=== PATIENT | female | born 1945 | race Caucasian/White ===

== ENCOUNTER 2018-04-08 23:01 | Emergency (ER) | payer MEDICARE, OTHER ==
[~2018-04-08] VITALS: Ht 157.5 cm; Wt 84.0 kg
[2018-04-08 23:03] VITALS: BP 159/82
[2018-04-08] MEDS ORDERED: tobramycin/dexamethasone ophthalmic suspension EACHEYE ONE (23:15)
== END 2018-04-08 23:31 | disposition home or self-care (01) ==
LOC: ER 23:02
DX: H10.9 Unspecified conjunctivitis (principal); H01.006 Unspecified blepharitis left eye, unspecified eyelid; H01.003 Unspecified blepharitis right eye, unspecified eyelid; E11.9 Type 2 diabetes mellitus without complications; G89.29 Other chronic pain; Z98.84 Bariatric surgery status
CPT/HCPCS: 99282

== ENCOUNTER 2018-04-11 13:53 | Emergency (ER) | payer MEDICARE, OTHER ==
[~2018-04-11] VITALS: Ht 157.5 cm; Wt 84.0 kg
[2018-04-11 14:04] VITALS: BP 147/67
[2018-04-11] MEDS ORDERED: TOBR5DRO57 EACHEYE (14:38)
== END 2018-04-11 14:52 | disposition home or self-care (01) ==
LOC: ER 13:53
DX: H01.006 Unspecified blepharitis left eye, unspecified eyelid (principal); H01.003 Unspecified blepharitis right eye, unspecified eyelid; E11.9 Type 2 diabetes mellitus without complications; G89.29 Other chronic pain; Z79.899 Other long term (current) drug therapy
CPT/HCPCS: 99283

== ENCOUNTER 2019-07-18 19:17 | Emergency (ER) | payer MEDICARE, OTHER ==
[~2019-07-18] VITALS: Ht 157.5 cm; Wt 97.0 kg
[2019-07-18 19:40] VITALS: BP 145/91
[2019-07-18] MEDS ORDERED: ondansetron 4mg rapidly disintigrating tab PO ONE (20:55)
[2019-07-18] MEDS ORDERED: HYDROcodone/acetaminophen 5mg/325mg tablet PO ONE (20:55)
== END 2019-07-18 21:35 | disposition home or self-care (01) ==
LOC: ER 19:18
DX: M25.562 Pain in left knee (principal); R22.42 Localized swelling, mass and lump, left lower limb; E11.9 Type 2 diabetes mellitus without complications; G89.29 Other chronic pain; Z98.0 Intestinal bypass and anastomosis status
CPT/HCPCS: 29505; 73564; 99284

== ENCOUNTER 2019-12-11 08:26 | Day surgery (SDC) | payer MEDICARE, OTHER ==
[2019-12-04 14:31] LABS: BASOPHILS # (AUTO) 0.1 X10'3 (0-0.2); BASOPHILS % (AUTO) 0.7 % (0-1); EOSINOPHILS # (AUTO) 0.2 X10'3 (0-0.9); EOSINOPHILS % (AUTO) 2.2 % (0-6); LYMPHOCYTES # (AUTO) 3.3 X10'3 (1.1-4.8); LYMPHOCYTES % (AUTO) 37.9 % (21-51); MEAN CORPUSCULAR HEMOGLOBIN 31.3 PG (27.0-31.0); MEAN CORPUSCULAR HGB CONC 33.8 g/dL (33.0-36.5); MEAN CORPUSCULAR VOLUME 92.4 FL (78-98); MEAN PLATELET VOLUME 7.9 FL (7.4-10.4); MONOCYTES # (AUTO) 0.5 X10'3 (0-0.9); MONOCYTES % (AUTO) 5.4 % (2-12); NEUTROPHILS # (AUTO) 4.7 X10'3 (1.8-7.7); NEUTROPHILS % (AUTO) 53.8 % (42-75); PRE OP HEMATOCRIT 42.2 % (35.0-45.0); PRE OP HEMOGLOBIN 14.3 g/dL (12.0-16.0); PRE OP PLATELET COUNT 197 X10'3 (140-440); RED BLOOD COUNT 4.57 X10'6 (4.20-5.60); RED CELL DISTRIBUTION WIDTH 13.2 % (11.5-14.5)
[2019-12-04 14:56] LABS: ALBUMIN 3.7 G/DL (3.4-5.0); ALBUMIN/GLOBULIN RATIO 0.9 (1.1-1.5); ALKALINE PHOSPHATASE 115 IU/L (46-116); BLOOD UREA NITROGEN 19 MG/DL (7-18); BUN/CREATININE RATIO 23.8 (6.6-38.0); CALCIUM 9.3 MG/DL (8.5-10.1); CHLORIDE 104 MMOL/L (99-107); PRE OP ALT 25 U/L (30-65); PRE OP ANION GAP 6 (8-16); PRE OP AST 21 U/L (10-37); PRE OP BILIRUB, TOTAL 0.5 MG/DL (0.0-1.0); PRE OP GLUCOSE 101 MG/DL (70-104); PRE OP POTASSIUM 3.5 MMOL/L (3.4-5.1); PRE OP SODIUM 140 MMOL/L (135-145); TOTAL CARBON DIOXIDE 29.8 MMOL/L (24-32); TOTAL PROTEIN 7.8 G/DL (6.4-8.2); eGFR 71 ML/MIN
[2019-12-11] VITALS (8 sets, daily range): BP systolic 140–156; BP diastolic 69–95
[~2019-12-11] VITALS: Ht 152.4 cm; Wt 100.2 kg
[~2019-12-11 08:26] MED LIST: ACET-2319 PO; ALPH600C3 PO; FLUT16SP28 BOTHNARES; GABA300C PO; INDA2.5T5 PO; PSEU120T84 PO; RED600TA PO; TRAM50TA2 PO; ceFAZolin 2gm in dextrose, iso 50 ML IV ONE; famotidine 10mg tablet PO ONE; ringers solution, lacted 1,000 ML IV SCH; vancomycin 1,500 MG in NS 300ml IV soln IV ONE
[2019-12-11] MEDS ORDERED: fentaNYL/PF 50MCG/1 ML 2ML syringe ONE ×3 (10:13→11:32)
[2019-12-11] MEDS ORDERED: sevoflurane 250ml liquid IH ONE (10:28)
[2019-12-11] MEDS ORDERED: BUPIVAcaine/PF 2.5 mg/ml (0.25%) 30ml vial ONE (10:29)
[2019-12-11] MEDS ORDERED: triamcinolone acetonide 40mg/ml inj ONE ×2 (10:29)
[2019-12-11] MEDS ORDERED: ondansetron/PF 4mg/2ml inj ONE (11:03)
[2019-12-11] MEDS ORDERED: hydrALAZINE 20mg/ml inj. IV ONE (11:03)
[2019-12-11] MEDS ORDERED: propofol inj 20 ML IV ONE (11:03)
[2019-12-11] MEDS ORDERED: LIDOcaine 2% (20mg/ml) 5ml vial ONE (11:03)
[2019-12-11] MEDS ORDERED: acetaminophen 1,000mg/100ml IV 100 ML IV ONE (11:04)
--- NOTE | 2019-12-11 11:50 | NUR ---
ADMITTED TO PACU FROM OR ACCOMPANIED BY ANESTHESIA. INITIAL PHYSICAL ASSESSMENT DONE AND RECORDED. REPORT RECEIVED FROM ANESTHESIA.
[2019-12-11] MEDS ORDERED: HYDROcodone/acetaminophen 10/325mg tab PO ONE (12:35)
--- NOTE | 2019-12-11 13:30 | NUR ---
DISCHARGE CRITERIA MET, DISCHARGE INSTRUCTIONS GIVEN, DEMONSTRATES VERBAL UNDERSTANDING. DISCHARGED HOME IN GOOD CONDITION.
== END 2019-12-11 13:30 | disposition home or self-care (01) ==
LOC: PAS 08:26
PROVIDERS: ATTEND Orthopaedic Surgery
DX: S83.232A Complex tear of medial meniscus, current injury, left knee, initial encounter (principal); S83.272A Complex tear of lateral meniscus, current injury, left knee, initial encounter; M94.262 Chondromalacia, left knee; G89.4 Chronic pain syndrome; F32.9 Major depressive disorder, single episode, unspecified; I10 Essential (primary) hypertension; K21.9 Gastro-esophageal reflux disease without esophagitis; E66.01 Morbid (severe) obesity due to excess calories; Z68.41 Body mass index [BMI] 40.0-44.9, adult; M17.0 Bilateral primary osteoarthritis of knee; E11.40 Type 2 diabetes mellitus with diabetic neuropathy, unspecified; E78.5 Hyperlipidemia, unspecified; Z87.891 Personal history of nicotine dependence; Z88.8 Allergy status to other drugs, medicaments and biological substances; Z79.899 Other long term (current) drug therapy; Z20.828 Contact with and (suspected) exposure to other viral communicable diseases; Z98.84 Bariatric surgery status; Z98.890 Other specified postprocedural states; X58.XXXA Exposure to other specified factors, initial encounter; Y93.89 Activity, other specified; Y92.89 Other specified places as the place of occurrence of the external cause; Y99.8 Other external cause status
CPT/HCPCS: 29873; 29879; 29880; 36415; 80053; 82948; 85025; 87635; 93005; J0131; J0360; J2001; J2405; J2704; J3010; J3301; J3370; J3490; J7040; A4215; A4618; A6250; A6449; A7000; J7120